=== PATIENT | male | born 1980 | race Asian ===

== ENCOUNTER 2020-10-26 12:24 | Emergency (ER) | payer MEDICAID ==
[~2020-10-26] VITALS: Ht 165.1 cm; Wt 71.4 kg
[2020-10-26 12:28] VITALS: BP 137/85
[2020-10-26 13:18] LABS: ANION GAP 4 mmol/L (5-15); CALCIUM 8.7 mg/dL (8.5-10.1); CHLORIDE 110 mmol/L (98-107); CREATININE 0.84 mg/dL (0.7-1.3)
[2020-10-26 13:25] LABS: BASOPHILS % (AUTO) 1 % (0-1); EOSINOPHILS % (AUTO) 1 % (1-7); LYMPHOCYTES % (AUTO) 20 % (22-44); MEAN CORPUSCULAR HEMOGLOBIN 30.2 pg (27.5-34.5); MEAN CORPUSCULAR HGB CONC 34.3 g/dL (33.2-36.2); MONOCYTES % (AUTO) 10 % (2-9); NEUTROPHILS % (AUTO) 69 % (42-75); PLATELET COUNT 335 x10^3/uL (130-400); RED BLOOD COUNT 4.84 x10^6/uL (4.38-5.82); RED CELL DISTRIBUTION WIDTH 12.7 % (9.4-14.8)
[2020-10-26 13:26] LABS: MD NO
== END 2020-10-26 16:09 | disposition home or self-care (01) ==
LOC: ED 15:30
DX: M10.071 Idiopathic gout, right ankle and foot (principal)
CPT/HCPCS: 36415; 80048; 82040; 84550; 85025; 99284; 99285